=== PATIENT | female | born 1995 | race African-American/Black ===

== ENCOUNTER → 2018-05-28 | Outpatient (CLI) | payer OTHER | LOC: M SMT 09:50 | DX: J45.30 Mild persistent asthma, uncomplicated (principal) | CPT/HCPCS: 71046 ==

== ENCOUNTER → 2018-10-19 | Outpatient (REF) | payer OTHER ==
[2018-10-19 19:24] LABS: FREE T4 0.93 NG/DL (0.76-1.46); THYROID STIMULATING HORMONE 1.25 uIU/ML (0.358-3.740)
[2018-10-24 14:10] LABS: ASPERGILLUS FLAVUS ABY Negative (Neg:<1:1); ASPERGILLUS FUMIGATUS ABY Negative (Neg:<1:1); ASPERGILLUS NIGER ABY Negative (Neg:<1:1); E001-IgE Cat Epith/Dander 0.41 kU/L (Class I); E005-IgE Dog Dander 0.46 kU/L (Class I); G002-IgE Bermuda Grass 4.83 kU/L (Class IV); M001-IgE Penicillium chrysogen < 0.10 kU/L (Class 0); M002 IgE Cladosporium herbaru < 0.10 kU/L (Class 0); M003 IgE Aspergillus fumigatu < 0.10 kU/L (Class 0); M006-IgE Alternaria alternata < 0.10 kU/L (Class 0); STRONGYLOIDES SERUM ANTIBODIES Negative (Negative); T001-IgE Maple/Box Elder 0.38 kU/L (Class I); T003-IgE Common Silver Birch 0.46 kU/L (Class I); T006-IgE Cedar, Mountain 0.26 kU/L (Class 0/I); T007-IgE Oak, White 0.43 kU/L (Class I); T008-IgE Elm, American 0.38 kU/L (Class I); T015-IgE Ash, White 0.54 kU/L (Class I); T070-IgE White Mulberry 0.23 kU/L (Class 0/I); W001-IgE Ragweed, Short 0.47 kU/L (Class I); W009-IgE Plantain, English 0.36 kU/L (Class I); W014-IgE Pigweed, Rough 0.42 kU/L (Class I); W018-IgE Sheep Sorrel 0.63 kU/L (Class II)
== END ==
LOC: M LAB REF 17:12
PROVIDERS: ATTEND Internal Medicine Pulmonary Disease
DX: J45.40 Moderate persistent asthma, uncomplicated (principal)

== ENCOUNTER → 2019-06-10 | Outpatient (CLI) | payer OTHER ==
[2019-06-10 15:34] LABS: EOS # 0.1 10^3/uL (0.0-0.5)
== END ==
LOC: M LAB 15:01
PROVIDERS: ATTEND Internal Medicine Pulmonary Disease
DX: J45.40 Moderate persistent asthma, uncomplicated (principal)

== ENCOUNTER → 2019-12-30 | Outpatient (CLI) | payer OTHER ==
--- NOTE | 2019-12-30 15:57 | REP ---
OB ULTRASOUND: Real-time sonographic evaluation of the gravid uterus is performed. There is a single living intrauterine gestation. Estimated gestational age is 25 weeks 1 day, EDC 04/12/2020. Today's measurements indicate appropriate growth. BPD 60 mm = 24 weeks 4 days, 40th percentile HC 225 mm = 24 weeks 4 days, 38th percentile AC 199 mm = 24 weeks 4 days, 38th percentile FL 47 mm = 25 weeks 5 days, 64th percentile HC/AC ratio 1.13, within normal range of 1.01 to 1.20. Estimated weight 756 grams, 40th percentile. Cervix is closed and measures 3.6 cm in length. heart rate 155 beats per minute. SEEN/GROSSLY UNREMARKABLE Lateral ventricles yes Posterior fossa yes Upper lip yes Four-chamber heart yes LVOT yes RVOT yes Stomach yes Cord insertion yes Three vessel cord yes Kidneys yes Bladder yes Spine yes position: Vertex. Placenta: Anterior and grade 0 with previa or abruption. Amniotic fluid: Within normal limits. Electronically Signed by Dariel Bautista MD 01/02/2020 12:55 P
== END ==
LOC: M RAD 14:13
PROVIDERS: ATTEND Obstetrics & Gynecology
DX: Z34.02 Encounter for supervision of normal first pregnancy, second trimester (principal); Z3A.24 24 weeks gestation of pregnancy

== ENCOUNTER 2020-04-05 15:51 | Inpatient (IN) | payer OTHER ==
[~2020-04-05] VITALS: Ht 172.7 cm; Wt 109.8 kg
[2020-04-05 16:11] VITALS: BP 146/79
[2020-04-05] MEDS ORDERED: PREN29TA4 PO (16:15)
[2020-04-05] MEDS ORDERED: LACTATED RINGER'S 1000 ML IV STA (16:38)
--- NOTE | 2020-04-05 17:15 | HPEPDOC ---
Obstetrical History & Physical General Date of Admission Apr 05, 2020 at 15:51 History of Present Illness Bay is a 24yo at 39+0wks, EDC [id number] by LMP/1TUS, is being admitt ed to LND for active labor at term. She reports regular painful contractions that started this morning after she woke up. She was seen in the clinic for a HAKEEM today and her cervical exam was 4-5/80/-3, intact membranes. She endorses movement, denies LOF/VB. 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 Chief Complaint: Contractions, term Information Provided By: Patient Age: 24 : 1 Term: 0 Pre-term: 0 Abortions: 0 Livin Care Care: Good Care Number of Visits: 11 Dating Final EDC: Apr 12, 2020 Final EDC for Daily Update: Apr 12, 2020 Final EDC by: LMP Antepartum Course Diagnos(e)s A1GDM Height (inches): 68 Pre- weight (lbs.): 195 Admission Weight (lbs.): 240 Change in Weight (lbs.): 45 Past Medical History Past Obstetrical History : Past Obstetrical History: [employer] History: Abnormal Pap (ASCUS, HPV-) Past Medical History Medical History Asthma Overweight Family History Significant Family History: No pertinent family hx Social History Marital Status: Single Family situation: Spouse/partner home Psychosocial History: Depression * Smoker: non-smoker Alcohol: Denies Drugs: denies Abuse Violence Screening Have you been hit/kicked/slapp: No Have you been sexually assault: No Imunizations Tdap status: declined Influenza Status: current Allergies Coded Allergies: No Known Allergies (Unverified , 04/05/20) Medications Scheduled Prenat 115/Iron Fum/Folic/Dss ( 19 Tablet) 1 Each Tablet, 1 TAB PO DAILY Physical Examination Physical Examination GENERAL: Alert and oriented times three. ABDOMEN: Gravid and non-tender to touch. FETUS: Is vertex (VTX) by sterile vaginal examination (SVE). EFW 8lbs by zohreh HEART RATE: Regular rate. LUNGS: Observed normal, nonlabored breathing. EXTREMITIES: No edema. Other physical findings O: VSS, afebrile, BP 146/79 FHR 150s, moderate variability, + accels, no decels noted CTX by TOCO: q3-4 minutes VE: 5-6/80/-3 with BBOW Laboratory Data 24H LABS Laboratory Tests 2 04/05/20 16:12: Serology Scanned Report Hepatitis B Testing Pertinent Laboratoy Data Blood Type: O+ RBC Antibody Screen: Negative HIV: Negative Hepatitis B: Negative Rapid Plasma Reagin: Nonreactive Rubella: Immune Varicella: Immune Chlamydia/Gonorrhea: Negative Group B Streptococcus: Negative Cystic Fibrosis: Unknown Anatomy Ultrasound Ultrasound Date: Nov 24, 2019 Placenta Location: Anterior Normal Anatomy: Yes (suboptimal visualization of facial profile, nose/lip, and right/left ventricular outflow tracts) Placenta Previa: No Other Ultrasounds [id number] - f/u at [facility], WNL [id number] - Growth: 49%tile Steroid Therapy Steroid Therapy: No Assessment/Plan Assessment Bay is a 24yo at 39wks being admitted to LND for active labor, Category I FHT/Reactive, GBS Negative, O Positive. A1GDM Asthma Plan P: Admit to LND, consent for labor, augmentation, delivery, and c/s if appropriate PIV start, admission labs drawn Will check glucose Pre-E labs if BPs continue to be mild range PO and IV hydration Epidural when appropriate Expectant management at this time Consult with OB if indicated Anticipate DARIUS JOSEPH CNM Apr 05, 2020 17:15
[2020-04-05 18:19] LABS: BASO % 0.2 % (0.0-1.0); EOS % 0.2 % (0.0-3.0); HEMATOCRIT 35.9 % (36.0-47.0); HEMOGLOBIN 11.3 g/dl (12.0-15.5); LYMPH # 3.5 10^3/uL (1.5-5.0); LYMPH % 31.4 % (24.0-44.0); MEAN CORPUSCULAR HEMOGLOBIN 26.1 pg (27.0-33.0); MEAN CORPUSCULAR HGB CONC 31.5 g/dl (32.0-36.5); MEAN CORPUSCULAR VOLUME 82.9 fl (80.0-96.0); MONO # 0.7 10^3/uL (0.0-0.8); MONO % 6.5 % (0.0-5.0); NEUTROPHILS # 6.8 10^3/uL (1.5-8.5); NEUTROPHILS % 61.2 % (36.0-66.0); PLATELET COUNT, AUTOMATED 332 10^3/uL (150-450); RED BLOOD COUNT 4.33 10^6/uL (4.00-5.40)
--- NOTE | 2020-04-05 18:36 | DNPDOC ---
[facility] Delivery Note Delivery Note DATE OF DELIVERY: 04/05/2020 PREDELIVERY DIAGNOSIS: 39-0/7 weeks' gestation and labor. POST DELIVERY DIAGNOSIS: Delivered. PROCEDURE: Spontaneous vaginal delivery. AIR TRAFFIC CONTROL OPERATOR: Dr. Zenaida Cook ANESTHESIA: None. ESTIMATED BLOOD LOSS: 250 mL. FINDINGS: 7 pound 9 ounce 344gm girl infant, Score 9/9, nuchal cord times . DELIVERY SUMMARY: Patient is a 24-year-old 1 now para 1 who was admitted to labor and delivery for active labor for 2hours. Patient SROM clear around 1755. Baby girl head was delivered without difficulty over intact perineum in CARLOS position at 1815. The nose and mouth were bulb suctioned. No nuchal cord was noted. The shoulders were then delivered without difficulty. Infant was handed on mother's belly. Cord was then clamped x2 and cut after pulsation. Pitocin bolus was started. Perineum and vagina was inspected and found to have a 1st degree laceration. This was repaired with 1% lidocaine 6cc with 2-0 chromic. The placenta was then delivered at 1825 spontaneously intact. Cord had a 3 vessel cord. EBL was 250mL. The vagina and perineum were reinspected and no further lacerations were found and hemostasis was good. Fundus was firm. Patient tolerated delivery well. Zenaida Cook MD Apr 05, 2020 18:36
[2020-04-05] MEDS ORDERED: ONDANSETRON 4MG/2ML VIAL IV PRN (18:45)
[2020-04-05] MEDS ORDERED: OXYTOCIN INJ 10 UNITS/ML VIAL (J2590) IM ONE (18:45)
[2020-04-05] MEDS ORDERED: ACETAMINOPHEN 500 MG TAB PO PRN (18:45)
[2020-04-05] MEDS ORDERED: METHYLERGONOVINE MALEATE 0.2 MG TAB PO PRN (18:45)
[2020-04-05] MEDS ORDERED: MEASLES,MUMPS,RUBELLA VACCINE INJ (MMR-II) (90707) SC SCH (18:45)
[2020-04-05] MEDS ORDERED: SIMETHICONE 80 MG CHEW TAB PO PRN (18:45)
[2020-04-05] MEDS ORDERED: MOM 30ML SUSPENSION UDC PO PRN (18:45)
[2020-04-05] MEDS ORDERED: diphenhydrAMINE 25MG CAP PO PRN (18:45)
[2020-04-05] MEDS ORDERED: RHOGAM 300 MCG (1500 IU) INJ (J2790) IM SCH (18:45)
[2020-04-05] MEDS ORDERED: CALCIUM CARBONATE 500 MG CHEW U/D PO PRN (18:45)
[2020-04-05] MEDS ORDERED: LIDOCAINE 1% MDV 20ML VIAL INFIL ONE (18:45)
[2020-04-05] MEDS ORDERED: DIBUCAINE 1% OINTMENT 30GM TOP PRN (18:45)
[2020-04-05] MEDS ORDERED: OXYTOCIN DRIP 30 UNITS in IV 1 EA IV SCH (19:15)
[2020-04-05] MEDS ORDERED: OXYTOCIN 30 UNITS IN 0.9% NaCl 500ML IV BAG (J2590) As Ordered ONE (19:21)
[2020-04-05 19:28] VITALS: BP 122/57
[2020-04-05 19:44] VITALS: BP 126/64
[2020-04-05 19:59] VITALS: BP 122/67
[2020-04-05] MEDS: IBUPROFEN 800 MG TAB PO PRN (20:10)
[2020-04-05 20:14] VITALS: BP 119/70
[2020-04-05] MEDS: DOCUSATE SODIUM 100 MG CAP PO SCH (21:00)
[2020-04-05 21:45] VITALS: BP 113/67
[2020-04-06 06:00] VITALS: BP 124/70
[2020-04-06] MEDS: IBUPROFEN 800 MG TAB PO PRN (06:14)
--- NOTE | 2020-04-06 07:42 | IPNPDOC ---
Progress Note Date of Service: Apr 06, 2020 Day#: 1 Progress Note SUBJECT: Patient is a 24-year-old 1 now Para 1 status post uncomplicated spontaneous vaginal delivery with post 1st degree laceration and repair, doing well day # 1. She has been ambulating, voiding spontaneously without issue and tolerating regular diet. Breast feeding without issue. Reports lochia is less than period. Patient is ambulating well. Reports minimal cramping with . Denies any pain. OBJECTIVE: VITAL SIGNS: Within normal limits, afebrile. GENERAL: No acute distress HEENT: MMM BREAST: Nontender, no erythema CARDIOVASCULAR EXAMINATION: RRR RESPIRATORY EXAMINATION: Bilaterally clear ABDOMINAL EXAMINATION: Soft, appropriate tenderness, nondistended, fundus -2 PERINEUM: Intact, minimal lochia EXTREMITIES: no edema, nontender ASSESSMENT: Patient is a 24-year-old 1 now Para 1 status post uncomplicated spontaneous vaginal delivery with post 1st degree laceration and repair, doing well day # 1. Vitals within normal limits, afebrile, hemodynamically stable with no evidence of infection. PLAN: 1. Continue care. 2. Tylenol and Motrin for pain. 3. Encourage breast feeding and ambulation. VS, I&O, 24H, Fishbone Laboratory Data 24H LABS Vital Signs Date Time Temp Pulse Resp B/P (MAP) Pulse Ox O2 Delivery O2 Flow Rate FiO2 04/06/20 06:00 97.9 75 18 124/70 (88) 04/05/20 21:45 97.8 70 16 113/67 (82) 04/05/20 20:14 83 119/70 (86) 04/05/20 19:59 82 122/67 (85) 04/05/20 19:44 83 126/64 (84) 04/05/20 19:28 98.0 86 18 122/57 (78) 04/05/20 16:11 105 146/79 (101) Intake & Output 04/06/20 05:59 Intake Total 500 ml Output Total 550 ml Balance -50 ml Laboratory Tests 04/05/20 16:12: Serology Scanned Report Hepatitis B Testing 04/05/20 17:24: Bedside Glucose (Misc Panel) 81 04/05/20 17:59: White Blood Count 11.0H, Red Blood Count 4.33, Hemoglobin 11.3L, Hematocrit 35.9L, Mean Corpuscular Volume 82.9, Mean Corpuscular Hemoglobin 26.1L, Mean Corpuscular Hemoglobin Concent 31.5L, Red Cell Distribution Width 14.7H, Platelet Count 332, Immature Granulocyte % (Auto) 0.5, Neutrophils (%) (Auto) 61.2, Lymphocytes (%) (Auto) 31.4, Monocytes (%) (Auto) 6.5H, Eosinophils (%) (Auto) 0.2, Basophils (%) (Auto) 0.2, Neutrophils # (Auto) 6.8, Lymphocytes # (Auto) 3.5, Monocytes # (Auto) 0.7, Eosinophils # (Auto) 0.0, Basophils # (Auto) 0.0, Nucleated Red Blood Cells % (auto) 0.0, Syphilis Serology [Pending] Current Medications Medications (Trade) Dose Ordered Sig/Linda Route PRN Reason Start Time Stop Time Status Last Admin Dose Admin Ibuprofen (Advil) 800 mg Q8HP PRN PO pain 04/05/20 18:45 04/06/20 06:14 800 MG Laboratory Tests 2 04/05/20 16:12: Serology Scanned Report Hepatitis B Testing 04/05/20 17:24: Bedside Glucose (Misc Panel) 81 04/05/20 17:59: Immature Granulocyte % (Auto) 0.5, Neutrophils (%) (Auto) 61.2, Lymphocytes (%) (Auto) 31.4, Monocytes (%) (Auto) 6.5H, Eosinophils (%) (Auto) 0.2, Basophils (%) (Auto) 0.2, Neutrophils # (Auto) 6.8, Lymphocytes # (Auto) 3.5, Monocytes # (Auto) 0.7, Eosinophils # (Auto) 0.0, Basophils # (Auto) 0.0, Nucleated Red Blood Cells % (auto) 0.0 CBC/BMP Laboratory Tests 04/05/20 17:59 Zenaida Cook MD Apr 05, 2020 18:42
[2020-04-06 08:04] LABS: GLUCOSE,RANDOM 85 MG/DL (LESS THAN 200)
[2020-04-06] MEDS: PRENATAL VITAMINS CHEWABLE TABLET PO SCH (08:45)
[2020-04-06] MEDS: DOCUSATE SODIUM 100 MG CAP PO SCH ×2 (08:45→20:20)
[2020-04-06 18:00] VITALS: BP 127/67
[2020-04-07] MEDS: IBUPROFEN 800 MG TAB PO PRN (05:06)
[2020-04-07 06:00] VITALS: BP 135/79
[2020-04-07] MEDS ORDERED: DIBU10OI TOP (08:22)
[2020-04-07] MEDS ORDERED: IBUP80TA PO (08:22)
[2020-04-07] MEDS ORDERED: DOCU100C16 PO (08:22)
[2020-04-07] MEDS: DOCUSATE SODIUM 100 MG CAP PO SCH (08:51)
[2020-04-07] MEDS: PRENATAL VITAMINS CHEWABLE TABLET PO SCH (08:51)
== END 2020-04-07 11:15 | disposition home or self-care (01) | DRG 807 ==
LOC: M LDI 15:51 → M OBS 04-06 00:57
PROVIDERS: ADMIT Registered Nurse Maternal Newborn; ATTEND Obstetrics & Gynecology
PROC: 10E0XZZ Delivery of Products of Conception, External Approach (ICD-10-PCS; principal; 2020-04-05)
PROC: 0HQ9XZZ Repair Perineum Skin, External Approach (ICD-10-PCS; 2020-04-05)
DX: O24.420 Gestational diabetes mellitus in childbirth, diet controlled (principal); Z37.0 Single live birth; Z3A.39 39 weeks gestation of pregnancy; O26.03 Excessive weight gain in pregnancy, third trimester; O99.52 Diseases of the respiratory system complicating childbirth; J45.909 Unspecified asthma, uncomplicated; O70.0 First degree perineal laceration during delivery

== ENCOUNTER → 2021-05-14 | Outpatient (REF) | payer OTHER ==
[~2021-05-14] MED LIST: DIBU28OI2 TOP; DOCU100C16 PO; IBUP80TA PO; PREN29TA4 PO
[2021-05-14 18:03] LABS: C REACTIVE PROTEIN QUANTITATIV 0.71 MG/DL (0.00-0.30)
[2021-05-14 18:14] LABS: TOTAL 25(OH) VITAMIN D 40.8 NG/ML (30.0-100.0)
== END ==
LOC: M SFHCRHEU 16:04
PROVIDERS: ATTEND Internal Medicine
DX: R70.0 Elevated erythrocyte sedimentation rate (principal); R79.82 Elevated C-reactive protein (CRP); M54.9 Dorsalgia, unspecified; E55.9 Vitamin D deficiency, unspecified